=== PATIENT | male | born 1995 | race Caucasian/White ===

== ENCOUNTER → 2020-10-18 12:58 | Outpatient (CLI) | payer OTHER, SELFPAY ==
[2020-10-18 14:06] LABS: Uric Acid 10.2 mg/dl (3.5-8.5)
[2020-10-25 16:15] LABS: Testosterone, Total, LC/MS 156.6 ng/dL (264.0-916.0); Testosterone,Free 3.9 pg/mL (9.3-26.5)
== END ==
PROVIDERS: Visit Provider Family Medicine
DX: M10.9 Gout, unspecified (principal)
CPT/HCPCS: 84402; 84403; 84550

== ENCOUNTER → 2022-05-12 15:40 | Outpatient (CLI) | payer OTHER, SELFPAY ==
[2022-05-12 18:48] LABS: Basophils # 0.1 K/mm3 (0-0.2); Basophils % 1.1 % (0.1-2.0); Eosinophils # 0.3 K/mm3 (0.0-0.4); Eosinophils % 2.4 % (0.1-12.0); Hematocrit 49.6 % (42.0-52.0); Hemoglobin 16.3 g/dL (14.1-18.0); Lymphocytes # 3.3 K/mm3 (0.7-4.5); Lymphocytes % 30.6 % (10-50); Mean Corpuscular HGB Conc 32.8 g/dL (31.8-35.4); Mean Corpuscular Volume 88.3 fl (80-94); Mean Platelet Volume 8.4 fl (7.4-10.4); Monocytes # 0.9 K/mm3 (0.1-1.0); Monocytes % 7.9 % (1.7-9.3); Neutrophils # 6.2 K/mm3 (1.8-7.8); Platelet Count 375 K/mm3 (142-424); Red Blood Count 5.62 M/mm3 (4.60-6.20); Red Cell Distribution Width 13.9 % (11.5-17.5); White Blood Count 10.8 K/mm3 (4.8-10.8)
[2022-05-12 19:14] LABS: Alanine Aminotransferase 61 U/L (12-78); Albumin Level 4.4 g/dl (3.5-5.0); Albumin/Globulin Ratio 1.6 (1.1-1.8); Alkaline Phosphatase 57 U/L (38-126); Anion Gap 14.2 mEq/L (5-15); Aspartate Amino Transferase 45 U/L (17-59); Bilirubin,Total 0.5 mg/dl (0.2-1.3); Blood Urea Nitrogen 13 mg/dl (9-20); Calcium 8.9 mg/dl (8.4-10.2); Carbon Dioxide 26 mmol/L (22.0-30.0); Chloride 102 mmol/L (98-107); Estimated Glomerular Filt Rate 101 ml/min (>60); GFR (African American) 122 ML/MIN (>60); Globulin 2.7 g/dL (1.3-3.2); Glucose 90 mg/dl (74-100); Potassium 4.2 mmoL/L (3.5-5.1); Sodium 138 mmol/L (136-145); Total Protein,Serum 7.1 g/dl (6.3-8.2)
[2022-05-12 19:45] LABS: Thyroid Stimulating Hormone 1.72 uIU/mL (0.465-4.68)
[2022-05-19 18:18] LABS: Testosterone, Total, LC/MS 167.3 ng/dL (264.0-916.0); Testosterone,Free 3.8 pg/mL (9.3-26.5)
== END ==
PROVIDERS: PCP Family Medicine; Visit Provider Family Medicine
DX: R53.83 Other fatigue (principal); E29.1 Testicular hypofunction
CPT/HCPCS: 80053; 84402; 84403; 84443; 85025

== ENCOUNTER 2023-03-19 22:49 | Outpatient (CLI) | payer OTHER, SELFPAY ==
[2023-03-19 19:15] LABS: Alanine Aminotransferase 44 U/L (12-78); Albumin Level 4.5 g/dl (3.5-5.0); Albumin/Globulin Ratio 1.6 (1.1-1.8); Alkaline Phosphatase 63 U/L (38-126); Anion Gap 16.5 mEq/L (5-15); Aspartate Amino Transferase 32 U/L (17-59); Bilirubin,Total 0.4 mg/dl (0.2-1.3); Blood Urea Nitrogen 17 mg/dl (9-20); Carbon Dioxide 26 mmol/L (22.0-30.0); Chloride 103 mmol/L (98-107); Estimated Glomerular Filt Rate 100 ml/min (>60); GFR (African American) 122 ML/MIN (>60); Globulin 2.9 g/dL (1.3-3.2); Potassium 4.5 mmoL/L (3.5-5.1); Sodium 141 mmol/L (136-145); Total Protein,Serum 7.4 g/dl (6.3-8.2); Uric Acid 9.2 mg/dl (3.5-8.5)
[2023-03-19 19:28] LABS: Glucose 47 mg/dl (74-100)
[2023-03-19 19:32] LABS: C-Reactive Protein 14.3 mg/L (0-4)
[2023-03-21 08:34] LABS: Testosterone,Total 315 ng/dL (264-916)
== END 2023-03-19 23:59 ==
LOC: LAB.DROPOF 22:49
PROVIDERS: PCP Family Medicine; Visit Provider Family Medicine
DX: E66.9 Obesity, unspecified (principal); M10.9 Gout, unspecified; R53.83 Other fatigue; Z68.41 Body mass index [BMI] 40.0-44.9, adult
CPT/HCPCS: 80053; 84403; 84550; 86140

== ENCOUNTER 2023-10-08 11:15 | Outpatient (CLI) | payer OTHER, SELFPAY ==
[2023-10-08 20:03] LABS: Basophils # 0.1 K/mm3 (0-0.2); Basophils % 0.9 % (0.1-2.0); Eosinophils # 0.2 K/mm3 (0.0-0.4); Eosinophils % 2.9 % (0.1-12.0); Hematocrit 54.5 % (42.0-52.0); Hemoglobin 17.2 g/dL (14.1-18.0); Lymphocytes # 2.5 K/mm3 (0.7-4.5); Lymphocytes % 31.8 % (10-50); Mean Corpuscular HGB Conc 31.6 g/dL (31.8-35.4); Mean Corpuscular Hemoglobin 29.7 pg (27.0-31.2); Mean Corpuscular Volume 94.2 fl (80-94); Mean Platelet Volume 8.6 fl (7.4-10.4); Monocytes # 0.5 K/mm3 (0.1-1.0); Monocytes % 6.8 % (1.7-9.3); Neutrophils # 4.5 K/mm3 (1.8-7.8); Neutrophils % 57.5 % (37.0-80.0); Platelet Count 333 K/mm3 (142-424); Red Blood Count 5.78 M/mm3 (4.60-6.20); Red Cell Distribution Width 14.4 % (11.5-17.5); White Blood Count 7.8 K/mm3 (4.8-10.8)
[2023-10-08 20:17] LABS: Uric Acid 10.5 mg/dl (3.5-8.5)
[2023-10-10 10:11] LABS: Testosterone,Total 410 ng/dL (264-916)
== END 2023-10-08 23:59 | disposition home or self-care (01) ==
LOC: LAB.DROPOF 10-09 11:15
PROVIDERS: PCP Family Medicine; Visit Provider Family Medicine
DX: R53.83 Other fatigue (principal); E66.01 Morbid (severe) obesity due to excess calories; Z68.41 Body mass index [BMI] 40.0-44.9, adult
CPT/HCPCS: 84403; 84550; 85025

== ENCOUNTER 2023-11-12 09:25 | Outpatient (CLI) | payer SELFPAY | END 2023-11-12 23:59 | disposition home or self-care (01) | LOC: LAB.DROPOF 11-13 14:57 | PROVIDERS: PCP Family Medicine; Visit Provider Family Medicine | DX: M10.9 Gout, unspecified (principal) | CPT/HCPCS: 84550 ==